=== PATIENT | female | born 1965 | race Caucasian/White ===

== ENCOUNTER 2018-10-12 13:29 | Emergency (ER) | payer OTHER ==
[~2018-10-12] VITALS: Ht 160 cm; Wt 79.4 kg
[2018-10-12] MEDS ORDERED: NS IV 1000 ML 1,000 ML IV ONE (13:39)
[2018-10-12 13:48] LABS: BASOPHILS % (AUTO) 0 % (0-10); EOSINOPHILS # (AUTO) 0.1 10^3/uL (0.0-0.3); EOSINOPHILS % (AUTO) 1 % (0-10); HEMATOCRIT 43 % (35-52); HEMOGLOBIN 14.3 G/DL (11.5-16.0); LYMPHOCYTES # (AUTO) 0.9 X 10^3 (1.0-4.0); LYMPHOCYTES % (AUTO) 7 % (12-44); MEAN CORPUSCULAR HEMOGLOBIN 27 PG (25-34); MEAN CORPUSCULAR HGB CONC 33 G/DL (32-36); MEAN CORPUSCULAR VOLUME 83 FL (80-99); MEAN PLATELET VOLUME 10.2 FL (7.4-10.4); MONOCYTES # (AUTO) 0.5 X 10^3 (0.0-1.0); MONOCYTES % (AUTO) 4 % (0-12); NEUTROPHILS # (AUTO) 10.9 X 10^3 (1.8-7.8); NEUTROPHILS % (AUTO) 88 % (42-75); PLATELET COUNT 273 10^3/uL (130-400); RED BLOOD COUNT 5.22 10^6/uL (4.35-5.85); RED CELL DISTRIBUTION WIDTH 14.9 % (10.0-14.5); WHITE BLOOD COUNT 12.4 10^3/uL (4.3-11.0)
[2018-10-12] MEDS ORDERED: PARO20TA5 (13:54)
[2018-10-12] MEDS ORDERED: LEVO75TA6 (13:54)
[2018-10-12] MEDS ORDERED: [UNRECOGNIZED DRUG - CODE] (13:54)
[2018-10-12 14:00] LABS: INR 0.9 (0.8-1.4); PROTHROMBIN TIME PATIENT 12.4 SEC (12.2-14.7)
[2018-10-12 14:09] LABS: ALANINE AMINOTRANSFERASE 26 U/L (0-55); ALKALINE PHOSPHATASE 93 U/L (40-136); BILIRUBIN,TOTAL 0.4 MG/DL (0.1-1.0); BUN/CREATININE RATIO 16; CALCIUM 8.6 MG/DL (8.5-10.1); CARBON DIOXIDE 21 MMOL/L (21-32); CHLORIDE 104 MMOL/L (98-107); CREATININE SERUM 0.74 MG/DL (0.60-1.30); GFR ESTIMATED > 60; GLUCOSE 92 MG/DL (70-105); MAGNESIUM 2.3 MG/DL (1.8-2.4); POTASSIUM 4.3 MMOL/L (3.6-5.0); SODIUM 137 MMOL/L (135-145); TOTAL PROTEIN 7.4 GM/DL (6.4-8.2)
[2018-10-12 14:17] LABS: BAND NEUTROPHILS 4 %; BASOPHILS % (MANUAL) 0 %; EOSINOPHILS % (MANUAL) 0 %; LYMPHOCYTES % (MANUAL) 4 %; MONOCYTES % (MANUAL) 6 %; MYOGLOBIN SERUM 23.9 NG/ML (10.0-92.0); NEUTROPHILS % (MANUAL) 86 %; RBC MORPH NORMAL
--- NOTE | 2018-10-12 14:26 | ED Chest Pain ---
General Chief Complaint: Chest Pain Stated Complaint: CP Nursing Triage Note: PT HAS BEEN EXPERIENCING PALPAITATIONS STARTING LAST NIGHT ALONG WITH WEAKNESS. Nursing Sepsis Screen: No Definite Risk Source: patient Exam Limitations: no limitations History of Present Illness Date Seen by Provider: Oct 12, 2018 Time Seen by Provider: 13:34 Initial Comments Here with report of palpitations that started last night and continued this morning. She is unsure of the cause of that. Hamer a little bit worse this morning and so decided to go shopping today. She is from [place]. Once here, she had some increasing symptoms and ultimately EMS was called. They did not note any significant findings with normal blood pressure and not tachycardic. Denies chest pain currently just states that she feels weak when she sits up. Does have history of A. fib in the past. Denies nausea or vomiting. Denies breathing problems. 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) NTG SL TRANSPORTATION ENGINEERING TECHNICIAN: No Associated Symptoms: No abdominal pain, No back pain, No diaphoresis, No nausea /vomiting, No shortness of breath, No weakness Allergies and Home Medications Allergies Coded Allergies: Penicillins (Verified Allergy, Unknown, 10/12/18) acetaminophen (Verified Allergy, Unknown, 10/12/18) butorphanol (Verified Allergy, Unknown, 10/12/18) meperidine (Verified Allergy, Unknown, 10/12/18) monosodium glutamate (Verified Allergy, Unknown, 10/12/18) propoxyphene (Verified Allergy, Unknown, 10/12/18) Patient Home Medication List Home Medication List Reviewed: Yes Review of Systems Review of Systems Constitutional: see HPI (. Like that [place].); No diaphoresis, No fever ( They brought him back here) EENTM: No Symptoms Reported Respiratory: Denies Shortness of Air, Denies Wheezing Cardiovascular: Denies Chest Pain; Lightheadedness, Palpitations Gastrointestinal: Denies Nausea, Denies Vomiting Genitourinary: No Symptoms Reported Musculoskeletal: no symptoms reported Skin: no symptoms reported Psychiatric/Neurological: No Symptoms Reported Endocrine: No Symptoms Reported All Other Systems Reviewed Negative Unless Noted: Yes Past [id number] Hx Past Med/Social Hx: Reviewed Nursing Past Med/Soc Hx Patient Social History Alcohol Use: Denies Use Recreational Drug Use: No Smoking Status: Never a Smoker Recent Foreign Travel: No Contact w/Someone Who Travel: No Recent Infectious Disease Expo: No Past Medical History Surgeries: Yes (HERNIA) Breast, Hysterectomy, Orthopedic Respiratory: Yes Asthma Cardiac: No Neurological: No Genitourinary: No Gastrointestinal: No Musculoskeletal: No Endocrine: Yes (DAVE) HEENT: No Cancer: Yes Breast Psychosocial: Yes Anxiety Integumentary: No Family Medical History Reviewed Nursing Family Hx Physical Exam Vital Signs Vital Signs - First Documented 10/12/18 13:34 Temp 98.2 Pulse 92 Resp 16 B/P (MAP) 136/85 (102) Pulse Ox 97 O2 Delivery Room Air Capillary Refill : Less Than 3 Seconds Height, Weight, BMI Height: 5'3.00" Weight: 175lbs. oz. 79.609385fw; BMI Method:Estimated General Appearance: No Apparent Distress, WD/WN HEENT: PERRL/EOMI, Pharynx Normal Neck: Non Tender, Supple Respiratory: Lungs Clear, Normal Breath Sounds Cardiovascular: Regular Rate, Rhythm, No Murmur Gastrointestinal: Non Tender, Soft Extremity: Normal Range of Motion, Non Tender Neurologic/Psychiatric: Alert, Oriented x3 Skin: Normal Color, Warm/Dry Progress/Results/Core Measures Results/Orders Lab Results Laboratory Tests Test 10/12/18 13:43 Range/Units White Blood Count 12.4 H 4.3-11.0 10^3/uL Red Blood Count 5.22 4.35-5.85 10^6/uL Hemoglobin 14.3 11.5-16.0 G/DL Hematocrit 43 35-52 % Mean Corpuscular Volume 83 80-99 FL Mean Corpuscular Hemoglobin 27 25-34 PG Mean Corpuscular Hemoglobin Concent 33 32-36 G/DL Red Cell Distribution Width 14.9 H 10.0-14.5 % Platelet Count 273 130-400 10^3/uL Mean Platelet Volume 10.2 7.4-10.4 FL Neutrophils (%) (Auto) 88 H 42-75 % Lymphocytes (%) (Auto) 7 L 12-44 % Monocytes (%) (Auto) 4 0-12 % Eosinophils (%) (Auto) 1 0-10 % Basophils (%) (Auto) 0 0-10 % Neutrophils # (Auto) 10.9 H 1.8-7.8 X 10^3 Lymphocytes # (Auto) 0.9 L 1.0-4.0 X 10^3 Monocytes # (Auto) 0.5 0.0-1.0 X 10^3 Eosinophils # (Auto) 0.1 0.0-0.3 10^3/uL Basophils # (Auto) 0.0 0.0-0.1 10^3/uL Neutrophils % (Manual) 86 % Lymphocytes % (Manual) 4 % Monocytes % (Manual) 6 % Eosinophils % (Manual) 0 % Basophils % (Manual) 0 % Band Neutrophils 4 % Blood Morphology Comment NORMAL Prothrombin Time 12.4 12.2-14.7 SEC INR Comment 0.9 0.8-1.4 Activated Partial Thromboplast Time 32 24-35 SEC Sodium Level 137 135-145 MMOL/L Potassium Level 4.3 3.6-5.0 MMOL/L Chloride Level 104 98-107 MMOL/L Carbon Dioxide Level 21 21-32 MMOL/L Anion Gap 12 5-14 MMOL/L Blood Urea Nitrogen 12 7-18 MG/DL Creatinine 0.74 0.60-1.30 MG/DL Estimat Glomerular Filtration Rate > 60 BUN/Creatinine Ratio 16 Glucose Level 92 70-105 MG/DL Calcium Level 8.6 8.5-10.1 MG/DL Corrected Calcium 8.6 8.5-10.1 MG/DL Magnesium Level 2.3 1.8-2.4 MG/DL Total Bilirubin 0.4 0.1-1.0 MG/DL Aspartate Amino Transf (AST/SGOT) 26 5-34 U/L Alanine Aminotransferase (ALT/SGPT) 26 0-55 U/L Alkaline Phosphatase 93 40-136 U/L Myoglobin 23.9 10.0-92.0 NG/ML Troponin I < 0.30 <0.30 NG/ML B-Type Natriuretic Peptide < 10.0 <100.0 PG/ML Total Protein 7.4 6.4-8.2 GM/DL Albumin 4.0 3.2-4.5 GM/DL Thyroid Stimulating Hormone (TSH) 0.80 0.35-4.94 UIU/ML My Orders Orders - CHERI OBANDO MD Thyroid Stimulating Hormone (10/12/18 13:39) Saline Lock/Iv-Start (10/12/18 13:39) Ns Iv 1000 Ml (Sodium Chloride 0.9%) (10/12/18 13:39) Ct Angio Chest W (10/12/18 15:48) Medications Given in ED Current Medications Medications Dose Ordered Sig/Michael Route Start Time Stop Time Status Last Admin Dose Admin Sodium Chloride 1,000 ml @ 0 mls/hr Q0M ONCE IV 10/12/18 13:39 10/12/18 13:41 DC 10/12/18 13:58 1,000 MLS/HR Vital Signs/I&O 10/12/18 13:34 Temp 98.2 Pulse 92 Resp 16 B/P (MAP) 136/85 (102) Pulse Ox 97 O2 Delivery Room Air Blood Pressure Mean: 102 Progress Progress Note : Progress Note Seen and evaluated. IV, labs, EKG and chest x-ray ordered. No aspirin as patient is a taken them today. No nitros patient is not having chest pain. Normal saline 1 L bolus. We will check thyroid function. Monitor patient. 1510: Considered CT angiogram of the chest due to symptoms. Other workup is essentially negative. I did discuss this at length with the patient who agrees. She has a small IV in her hand sort to try to get a new IV. 1600: Unable to get better IV site so we will try CT angiogram of the chest this way. 1615: Patient unable tolerate contrast dye of any amount so we're unable to do the CT angiogram. Monitor patient. 1645: I did discuss at length with the patient her current symptoms and findings. She actually thinks this may be a food issue as she has problems like this with MSG and she thinks now that she may have had some today. She would like to go home and take some Benadryl. We did discuss further workup versus going home. At this point her heart rate has been in the 80s to low 90s throughout the visit with O2 sat 100 percent on room air and blood pressure and good range at 140s over 80s. She feels comfortable like to go home. We'll do that with the understanding that she'll return for any concerns. Discharged home with return precautions. Patient verbalize understanding instructions and agreement with plan. Initial ECG Impression Date: Oct 12, 2018 Initial ECG Impression Time: 13:34 Initial ECG Rate: 77 Initial ECG Rhythm: Normal Sinus Comment Sinus rhythm with LVH. No evidence of ST elevation [place]. No previous available for comparison. Interpreted by me. Diagnostic Imaging Diagonstic Imaging: Xray Plain Films/CT/US/NM/MRI: chest Comments NAME: SAM MORTON [facility] REC#: [id number] PT STATUS: REG ER : 1965 PHYSICIAN: NATALIO ANDUJAR APRN ADMIT DATE: 10/12/18/ER Draft Date of Exam:10/12/18 CHEST 1 VIEW, AP/PA ONLY INDICATION: Palpitations starting last night, along with weakness. EXAMINATION: Chest 10/12/2018 FINDINGS: Heart is unremarkable. The pulmonary vasculature within normal limits. The lungs and pleural spaces are clear. There is no evidence for pneumothorax. Clips in the left axillary region noted. IMPRESSION: 1. Chronic change, no acute abnormality. Dictated on workstation # [id number] Dict: 10/12/18 1422 Trans: 10/12/18 1424 [facility] [place] [id number] Interpreted by: NA TREJO MD Electronically signed by: Departure Impression Primary Impression: Palpitations Disposition: 01 HOME, SELF-CARE Condition: Improved Departure-Patient Inst. Decision time for Depature: 16:50 Referrals: NO,LOCAL PHYSICIAN (PCP/Family) Primary Care Physician Patient Instructions: Palpitations (DC) Add. Discharge Instructions: All discharge instructions reviewed with patient and/or family. Voiced understanding. Continue home medications as previously prescribed. You may take Benadryl 25- 50 mg by mouth after leaving as discussed. You may also take your stomach medicine Tagamet. Follow-up with your DrJames in a few days for recheck. Return for worse pain, fever, vomiting, weakness, breathing problems or other concerns as needed. CHERI OBANDO MD Oct 12, 2018 14:26
[2018-10-12 17:00] VITALS: BP 144/89
== END 2018-10-12 17:00 | disposition home or self-care (01) ==
LOC: ER 13:32
DX: R00.2 Palpitations (principal); J45.909 Unspecified asthma, uncomplicated; E06.3 Autoimmune thyroiditis; Z85.3 Personal history of malignant neoplasm of breast; Z88.0 Allergy status to penicillin; Z88.8 Allergy status to other drugs, medicaments and biological substances; Z98.890 Other specified postprocedural states; Z90.710 Acquired absence of both cervix and uterus
CPT/HCPCS: 36415; 71045; 80053; 83735; 83874; 83880; 84443; 84484; 85007; 85027; 85610; 85730; 93005; 93041